=== PATIENT | female | born 1980 | race African-American/Black ===

== ENCOUNTER 2017-06-21 19:01 | Inpatient (IN) ==
[2017-06-21 19:42] LABS: BASO% 0.9 % (0.0-0.8); EOS# 0.15 X1000 (0.0-0.7); EOS% 3.2 % (0.0-10.0); HEMATOCRIT 20.8 % (37.0-47.0); HEMOGLOBIN 6.2 g/dL (12.0-16.0); LYMPH# 1.59 X1000 (1.2-3.4); LYMPH% 34.4 % (20.5-51.1); MANUAL DIFF NEEDED? YES; MCH 20.5 PG (27-31); MCHC 29.8 g/dL (33-37); MCV 68.9 FL (81-99); MONO# 0.39 X1000 (0.11-0.59); MONO% 8.4 % (1.7-9.3); MPV 9.9 FL (7.4-10.4); NEUT% 53.1 % (42.2-75.2); PLT 355 X1000 (130-400); RBC 3.02 XMIL (4.2-5.4)
--- NOTE | 2017-06-21 19:53 | PROVIDER DOCUMENTATION ---
HPI-Female /OB/Breast - General Chief Complaint: Female Stated Complaint: FEMALE Time Seen by Provider: 06/21/17 19:25 Source: reports: patient, family Allergies/Adverse Reactions: Patient Allergies Allergy/AdvReac Type Severity Reaction Status Date / Time Penicillins Allergy Unknown Verified 06/21/17 19:10 Home Medications: Home Medication List Medication Instructions Recorded Confirmed Last Taken Type NK [No Home Medications] 06/21/17 06/21/17 Unknown History - History of Present Illness-Female /OB Nature of Presenting Problem: 37 year old AAF presents with c/o heavy vaginal bleeding for 5 days. pt report she went through an entire box of tampons and large overnight pads yesterday alone. pt reports tonight she was at work and became dizzy, lightheaded, weak. pt reports her menstrual cycles usually have a 7-10 day duration with moderate to heavy flow. pt denies pain, reports she just feel weak. Does patient report she is ?: No Location of complaint: reports: vaginal Quality of Pain: reports: none Vaginal Symptoms: reports: abnormal bleeding Vaginal Bleeding Amount: Copious/Excessive Review of Systems - Adult - REVIEW OF SYSTEMS - ADULT Constitutional: reports: no symptoms reported. denies: chills, fever, fatique Eyes: reports: no symptoms reported. denies: discharge, blurred vision, double vision Ears, Nose, Mouth & Throat: reports: no symptoms reported. denies: ear discharge, ear pain, nose pain, loose teeth, throat pain, throat swelling Cardiovascular: reports: no symptoms reported. denies: chest pain, palpitations , syncope Respiratory: reports: no symptoms reported. denies: chronic cough, cough, shortness of breath, wheezing Gastrointestinal: reports: no symptoms reported. denies: abdominal pain, diarrhea, nausea, vomiting Genitourinary: reports: see HPI, discharge. denies: dysuria, hematuria, urgency Musculoskeletal: reports: no symptoms reported. denies: bone pain, joint pain, joint swelling, neck pain Integumentary: reports: no symptoms reported. denies: hives, skin sores/ulcer Neurological: reports: see HPI, dizziness/vertigo Psychiatric: reports: no symptoms reported Endocrine: reports: no symptoms reported Hematologic/Lymphatic: reports: see HPI, low blood count, prolonged bleeding, transfusions Allergic/Immunologic: reports: no symptoms reported All Other Systems: Reviewed and Negative Past History - Adult - PAST MEDICAL HISTORY-ADULT Review of Records: reports: Old Records Reviewed, Nursing Assessment Review, Medications Reviewed, Social history reviewed & non-contributory. Major Childhood Illnesses: reports: denies history Cardiovascular: reports: denies history Respiratory: reports: denies history Gastrointestinal: reports: denies history Obstetrical/Gynecological: reports: denies history Genitourinary: reports: denies history Musculoskeletal: reports: other (knee pain) Neurological: reports: denies history, degenerative disease Endocrine/Immune: reports: denies history Other Conditions: reports: denies history - PRIOR SURGERIES/PROCEDURES Surgical/Procedure History: reports: none - IMMUNIZATION STATUS Childhood Immunizations: See Nurse Assessment Flu Vaccine: See Nurse Assessment - FAMILY HISTORY Family History: reviewed, not pertinent - SOCIAL HISTORY Smoking: cigarettes Provider spent 3-5 mins advising pt. on dangers of tobacco.: Discussed manners to quit use, and f/u contacts for add'l counseling. Substance Use: none/never Alcohol Use Frequency: never Physical Exam-General - PHYSICAL EXAM-ADULT Initial Vital Signs Reviewed: Yes - CONSTITUTIONAL General Appearance: appears well, alert, no apparent distress. negative: mild distress, moderate distress, severe distress - EYES Eyes: pale conjunctivae. negative: sclera injected, scleral icterus, subconjunctival hemorrhage - HEAD, EARS, NOSE, MOUTH & THROAT HENMT: normocephalic/atraumatic, moist mucous membranes, normal ENT inspection - NECK Neck: non-tender, full range of motion, supple, normal inspection. negative: C- spine tenderness, limited range of motion, tender lateral, tender midline - RESPIRATORY Respiratory: chest non-tender, lungs clear, normal breath sounds, no pleuratic chest pain, no respiratory distress, no accessory muscle use. negative: respiratory distress, decreased breath sounds, accessory muscle use, crackles, rales, rhonchi, stridor, wheezing - CARDIOVASCULAR Cardiovascular: normal peripheral pulses, regular rate, rhythm - GASTROINTESTINAL (ABDOMEN) Abdominal Exam: normal bowel sounds, non tender, soft. negative: distended, guarding, rigid, tenderness - GENITOURINARY Female Genitalia/Pelvic Exam: external exam normal, active bleeding (mild to moderate bleeding noted from cervix with gold ball sized clots in the vaginal vault.), blood. negative: speculum exam normal - MUSCULOSKELETAL Back Exam: normal inspection, no CVA tenderness, no vertebral tenderness. negative: CVA tenderness, decreased range of motion, swelling, vertebral tenderness Extremity: normal range of motion, non-tender, normal gait, normal inspection, no pedal edema, no calf tenderness, normal capillary refill. negative: deformity, erythema, swelling, tenderness Peripheral Pulses: radial (R): 3+, radial (L): 3+ - SKIN Integumentary: normal turgor, warm/dry, pallor - NEUROLOGIC Neurologic: grossly normal, no motor/sensory deficits - PSYCHIATRIC Psych/Mental Status: normal mood/affect, normal thought content, normal thought process, oriented x 3 Progress - PLAN OF CARE/RESULTS Progress/Plan/Lab Results: Vital Signs - 8 hr 06/21/17 19:06 06/21/17 20:19 06/21/17 20:41 Temperature 98.5 F Pulse Rate 93 H 95 H Pulse Rate [Sitting] 90 Pulse Rate [Standing] 90 Pulse Rate [Supine] 90 Respiratory Rate 16 16 Blood Pressure 112/38 132/89 Blood Pressure [Sitting] 120/59 Blood Pressure [Standing] 129/75 Blood Pressure [Supine] 119/52 O2 Sat by Pulse Oximetry 100 100 06/21/17 21:05 06/21/17 21:20 06/21/17 21:53 Temperature 97.7 F 98.4 F Pulse Rate 90 92 H 89 Pulse Rate [Sitting] Pulse Rate [Standing] Pulse Rate [Supine] Respiratory Rate 14 14 20 Blood Pressure 124/60 120/62 120/62 Blood Pressure [Sitting] Blood Pressure [Standing] Blood Pressure [Supine] O2 Sat by Pulse Oximetry 100 100 100 Laboratory Results - last 24 hr 06/21/17 06/21/17 06/21/17 19:15 19:15 19:15 WBC 4.62 L RBC 3.02 L Hgb 6.2 L Hct 20.8 L MCV 68.9 L MCH 20.5 L MCHC 29.8 L RDW Std Deviation 18.5 H Plt Count 355 MPV 9.9 Immature Gran % (Auto) 0.0 Neut % (Auto) 53.1 Lymph % (Auto) 34.4 [place] % (Auto) 8.4 Eos % (Auto) 3.2 Baso % (Auto) 0.9 H Immature Gran # (Auto) 0.00 Neut # (Auto) 2.45 Lymph # (Auto) 1.59 [place] # (Auto) 0.39 Eos # (Auto) 0.15 Baso # (Auto) 0.04 Segmented Neutrophils 63 Lymphocytes 29 Monocytes 5 Eosinophils 3 Microcytosis 3+ PT 11.0 INR 1.04 PTT (Actin FS) 23.8 Sodium 138 Potassium 3.7 Chloride 103 Carbon Dioxide 24 L Anion Gap 11 BUN 12 Creatinine 0.7 Estimated GFR/1.73 m2 > 60 BUN/Creatinine Ratio 17 Glucose 86 Calculated Osmolality 275 Calcium 8.7 L Iron TIBC % Saturation Unsat Iron Binding Total Bilirubin 0.22 AST 17 ALT 12 Alkaline Phosphatase 95 Total Protein 7.2 Albumin 4.1 Globulin 3.1 Albumin/Globulin Ratio 1.3 Serum , Qual Blood Type Antibody Screen Crossmatch 06/21/17 06/21/17 06/21/17 19:15 19:15 19:15 WBC RBC Hgb Hct MCV MCH MCHC RDW Std Deviation Plt Count MPV Immature Gran % (Auto) Neut % (Auto) Lymph % (Auto) [place] % (Auto) Eos % (Auto) Baso % (Auto) Immature Gran # (Auto) Neut # (Auto) Lymph # (Auto) [place] # (Auto) Eos # (Auto) Baso # (Auto) Segmented Neutrophils Lymphocytes Monocytes Eosinophils Microcytosis PT INR PTT (Actin FS) Sodium Potassium Chloride Carbon Dioxide Anion Gap BUN Creatinine Estimated GFR/1.73 m2 BUN/Creatinine Ratio Glucose Calculated Osmolality Calcium Iron 11 L TIBC 371 % Saturation 3 Unsat Iron Binding 360 H Total Bilirubin AST ALT Alkaline Phosphatase Total Protein Albumin Globulin Albumin/Globulin Ratio Serum , Qual NEGATIVE Blood Type B POSITIVE Antibody Screen NEGATIVE Crossmatch See Detail Orders Category Date Time Status Orthostatic Vital Signs NOW Care 06/21/17 19:50 Active Saline Loc DIRECTED Care 06/21/17 19:50 Active Transfuse .Give-Transfuse Care 06/21/17 19:51 Active CHEST-2 VIEWS [RAD] Stat Exams 06/21/17 19:52 Completed CBC WITH DIFF [HEME] Stat Lab 06/21/17 19:15 Completed COMPREHENSIVE METABOLIC PANEL [CHEM] Stat Lab 06/21/17 19:15 Completed FERRITIN Stat Lab 06/21/17 19:15 Received FOLATE Stat Lab 06/21/17 19:15 Received OCCULT BLOOD SCREENING [STOOL] Stat Lab 06/21/17 19:50 Uncollected PRBC [LRPC (RED CELLS)] [BBK] Stat Lab 06/21/17 19:15 Results TEST-SERUM [PREG] Stat Lab 06/21/17 19:15 Completed PROTIME WITH INR [COAG] Stat Lab 06/21/17 19:15 Completed PTT [COAG] Stat Lab 06/21/17 19:15 Completed RETIC COUNT [HEME] Stat Lab 06/21/17 19:15 Ordered TYPE & SCREEN [BBK] Stat Lab 06/21/17 19:15 Results UA NIMS W/REFLEX CULT [URINALYSIS] Stat Lab 06/21/17 19:52 Uncollected UIBC W TOTAL IRON [CHEM] Stat Lab 06/21/17 19:15 Completed VITAMIN B12 Stat Lab 06/21/17 19:15 Received 0.9% Sodium Chloride Inj [Ns] 1,000 ml Med 06/21/17 20:58 Discontinued .ROUTE As Directed 0.9% Sodium Chloride Inj [Ns] 1,000 ml Med 06/21/17 20:57 Active IV 50 mls/hr EKG [EKG] Stat Ther 06/21/17 19:51 Ordered Transfer/Admit Order [TRANSFER] Routine Transfer 06/21/17 21:30 Ordered Laboratory Tests 06/21/17 06/21/17 06/21/17 19:15 19:15 19:15 WBC 4.62 L RBC 3.02 L Hgb 6.2 L Hct 20.8 L MCV 68.9 L MCH 20.5 L MCHC 29.8 L RDW Std Deviation 18.5 H Plt Count 355 MPV 9.9 Immature Gran % (Auto) 0.0 Neut % (Auto) 53.1 Lymph % (Auto) 34.4 [place] % (Auto) 8.4 Eos % (Auto) 3.2 Baso % (Auto) 0.9 H Immature Gran # (Auto) 0.00 Neut # (Auto) 2.45 Lymph # (Auto) 1.59 [place] # (Auto) 0.39 Eos # (Auto) 0.15 Baso # (Auto) 0.04 Segmented Neutrophils 63 Lymphocytes 29 Monocytes 5 Eosinophils 3 Microcytosis 3+ PT 11.0 INR 1.04 PTT (Actin FS) 23.8 Sodium 138 Potassium 3.7 Chloride 103 Carbon Dioxide 24 L Anion Gap 11 BUN 12 Creatinine 0.7 Estimated GFR/1.73 m2 > 60 BUN/Creatinine Ratio 17 Glucose 86 Calculated Osmolality 275 Calcium 8.7 L Total Bilirubin 0.22 AST 17 ALT 12 Alkaline Phosphatase 95 Total Protein 7.2 Albumin 4.1 Globulin 3.1 Albumin/Globulin Ratio 1.3 Serum , Qual Blood Type Antibody Screen Crossmatch 06/21/17 06/21/17 19:15 19:15 WBC RBC Hgb Hct MCV MCH MCHC RDW Std Deviation Plt Count MPV Immature Gran % (Auto) Neut % (Auto) Lymph % (Auto) [place] % (Auto) Eos % (Auto) Baso % (Auto) Immature Gran # (Auto) Neut # (Auto) Lymph # (Auto) [place] # (Auto) Eos # (Auto) Baso # (Auto) Segmented Neutrophils Lymphocytes Monocytes Eosinophils Microcytosis PT INR PTT (Actin FS) Sodium Potassium Chloride Carbon Dioxide Anion Gap BUN Creatinine Estimated GFR/1.73 m2 BUN/Creatinine Ratio Glucose Calculated Osmolality Calcium Total Bilirubin AST ALT Alkaline Phosphatase Total Protein Albumin Globulin Albumin/Globulin Ratio Serum , Qual NEGATIVE Blood Type B POSITIVE Antibody Screen NEGATIVE Crossmatch See Detail Orders Category Date Time Status Orthostatic Vital Signs NOW Care 06/21/17 19:50 Active Saline Loc DIRECTED Care 06/21/17 19:50 Active Transfuse .Give-Transfuse Care 06/21/17 19:51 Active CHEST-2 VIEWS [RAD] Stat Exams 06/21/17 19:52 Taken CBC WITH DIFF [HEME] Stat Lab 06/21/17 19:15 Completed COMPREHENSIVE METABOLIC PANEL [CHEM] Stat Lab 06/21/17 19:15 Completed OCCULT BLOOD SCREENING [STOOL] Stat Lab 06/21/17 19:50 Uncollected PRBC [LRPC (RED CELLS)] [BBK] Stat Lab 06/21/17 19:15 Results TEST-SERUM [PREG] Stat Lab 06/21/17 19:15 Completed PROTIME WITH INR [COAG] Stat Lab 06/21/17 19:15 Completed PTT [COAG] Stat Lab 06/21/17 19:15 Completed TYPE & SCREEN [BBK] Stat Lab 06/21/17 19:15 Results UA NIMS W/REFLEX CULT [URINALYSIS] Stat Lab 06/21/17 19:52 Uncollected 0.9% Sodium Chloride Inj [Ns] 1,000 ml Med 06/21/17 20:58 Discontinued .ROUTE As Directed 0.9% Sodium Chloride Inj [Ns] 1,000 ml Med 06/21/17 20:57 Active IV 50 mls/hr EKG [EKG] Stat Ther 06/21/17 19:51 Ordered Vital Signs - 24 hr 06/21/17 19:06 06/21/17 20:19 06/21/17 20:41 Temperature 98.5 F Pulse Rate 93 H 95 H Pulse Rate [Sitting] 90 Pulse Rate [Standing] 90 Pulse Rate [Supine] 90 Respiratory Rate 16 16 Blood Pressure 112/38 132/89 Blood Pressure [Sitting] 120/59 Blood Pressure [Standing] 129/75 Blood Pressure [Supine] 119/52 O2 Sat by Pulse Oximetry 100 100 06/21/17 21:05 06/21/17 21:20 Temperature 97.7 F 98.4 F Pulse Rate 90 92 H Pulse Rate [Sitting] Pulse Rate [Standing] Pulse Rate [Supine] Respiratory Rate 14 14 Blood Pressure 124/60 120/62 Blood Pressure [Sitting] Blood Pressure [Standing] Blood Pressure [Supine] O2 Sat by Pulse Oximetry 100 100 Reviewed labs, H&P with Dr. Sin, agrees with admission, transfusion. Result Diagrams: 06/21/17 19:15 06/21/17 19:15 - REASSESSMENT Reassessment #1 Time Reassessed: 21:35 Status: other (pt notified of admission, agrees, verbalizes understanding and agrees to transfer [place] for specialist consult.) - CONSULTS/PCP/HOSPITALIST Notification #1 *Consult/PCP/Hospitalist*: Dr. Alamo Time Discussed: 21:26 Consult Disposition: Will see in ED, Admit, other (transfer to [place] for gynecology consult.) #2 Consult: Dr. Webster Time Discussed: 21:52 Consult Disposition: other (transfer to [place] and he will evaluate there.) #3 Consult: Dr. Alamo Time Discussed: 21:55 Consult Disposition: other (notified of exam with active bleeding and consult with Dr. Webster.) Departure - Departure Date of Disposition Decision: 06/21/17 Time of Disposition Decision: 21:21 DIAGNOSIS: Vaginal bleeding Anemia Qualifiers: Anemia type: unspecified type Qualified Code(s): D64.9 - Anemia, unspecified Disposition: ADMITTED INPATIENT 09 Certified Medical Emergency: Emergent Condition: Stable - Critical Care Note This patient required my direct & personal management of CC.: No Attestation - Physician/ JEROME Attestation Patient care was provided by Advanced Practice Provider:: Yes Advanced Practice Provider:: Manuela Glover Advanced Practice Provider documentation review:: The Mid-level provider documentation, treatment plan and medical decision making was reviewed by the physician who agrees with all treatment and medical decision making by the MLP.
[2017-06-21 19:54] LABS: EOS 3 % (1-10); LYMPHS 29 % (21-51); MONO 5 % (1-9)
[2017-06-21 20:10] LABS: INR 1.04; PTT 23.8 Seconds (22.0-36.0)
[2017-06-21 20:15] LABS: AGAP 11; ALBUMIN 4.1 g/dL (3.5-5.0); ALKALINE PHOSPHATASE 95 U/L (32-104); BUN 12 mg/dL (8-22); CALCIUM 8.7 mg/dL (8.8-10.2); CHLORIDE 103 mmol/L (98-107); COSMO 275; GOT 17 U/L (10-30); GPT 12 U/L (10-36); POTASSIUM 3.7 mmol/L (3.5-5.1); SODIUM 138 mmol/L (136-145); TCO2 24 mmol/L (25-35); TOTAL BILIRUBIN 0.22 mg/dL (0.20-1.00); TOTAL PROTEIN 7.2 g/dL (6.3-8.3)
[2017-06-21] MEDS ORDERED: NS 1,000 ML IV ONE (20:57)
[2017-06-21] MEDS ORDERED: NS 1,000 ML ONE (20:58)
--- NOTE | 2017-06-21 22:11 | Diag Imaging Result Doc PS360 ---
CHEST-2 VIEWS - 06/21/2017 INDICATION: admission TECHNIQUE: COMPARISON: 01/20/2017 FINDINGS: The lungs are normally expanded and clear. Heart size and mediastinal contours are normal. No pneumothorax or pleural effusion. IMPRESSION: Negative exam. Electronically signed by Jesús Koch 06/21/2017 10:09 PM
[2017-06-21 22:14] LABS: IRON SATURATION 3 %; TIBC 371 ug/dL; TOTAL IRON 11 ug/dL (49-151); UNBOUND IRON 360 ug/dL (112-346)
[2017-06-21 22:30] LABS: FERRITIN 2 ng/mL (13-150)
[2017-06-21 22:32] LABS: RETIC% 2.33 % (0.8-2.1); RETIC-HE 18.7 PG (28.2-36.6)
--- NOTE | 2017-06-21 22:49 | ED EKG INTERP ---
This chart was entered by Erick Madrid Scribe, acting as scribe for Checo Sin MD. EKG Interpretation - EKG Time of EKG reading by physician:: 20:09 EKG Read and Signed by:: Checo Sin EKG Interpretation (*Must complete 3 of following elements*): Normal Rate: 102 Rhythm: Sinus tachycardia This chart was documented by the indicated scribe, (Erick Madrid Scribe) and accurately reflects the services I performed and decisions made by me, Checo La MD, as attested by the provider's signature.
--- NOTE | 2017-06-21 23:30 | HISTORY AND PHYSICAL ---
PRIMARY CARE PROVIDER: LEILA Myers CHIEF COMPLAINT: Heavy vaginal bleeding. HISTORY OF PRESENT ILLNESS: A 36-year-old female with a past medical history of heavy menstrual bleeding and cramping comes to the emergency room after 5 days of bleeding. She became dizzy at work. She reportedly went through an entire box of super-absorbent plus tampons and a large overnight pad yesterday. She has had 7-10 days of bleeding. She also stated that her last menstrual period was 2 weeks prior to this. She has felt weak and fatigued with dizziness and lightheadedness. She denies any chest pain, shortness of breath. Laboratory data was obtained as well as a pelvic exam performed in the emergency room. Her hemoglobin and hematocrit was 6.2 and 20.8. On pelvic exam, the ER provider noted at least 2 golf ball sized clots as well as mild to moderate bleeding in the cervix. INTERACTIVE DEVELOPER psychological operations officer at [facility] has agreed to consult the patient and she will be sent to [facility] for further evaluation and treatment. PAST MEDICAL HISTORY: Heavy menstrual bleeding. PREVIOUS SURGICAL HISTORY: 1. C-sections x2. 2. Bilateral tubal ligation. FAMILY HISTORY: Mother had a CABG x2, the 1st in her 40's. SOCIAL HISTORY: Smokes half a pack of cigarettes a day. Denies alcohol or illicit drug use or abuse. with 3 kids at home. Works at [employer]. ALLERGIES: Penicillin causing an unknown reaction from childhood. HOME MEDICATIONS: NSAIDs and Tylenol related to pain occasionally. Otherwise, no home medications. REVIEW OF SYSTEMS: Fourteen point review of systems conducted with the patient. Pertinent positives listed above in the HPI. All other systems reviewed and found to be negative. PHYSICAL EXAMINATION: VITAL SIGNS: Temperature 98.4 degrees, pulse 92, respirations 14, blood pressure 120/62, oxygen saturation 100% on room air. Orthostatic vital signs were done and patient was not orthostatic. GENERAL: Pleasant, 37-year-old female, answers all questions appropriately lying on the ER stretcher in no acute distress. HEENT: Head is atraumatic, normocephalic. Pupils equal, round, reactive to light. Extraocular eye movement intact. Sclerae is anicteric. Conjunctivae is pale. Oral mucosa is moist. NECK: Supple. No JVD. No thyromegaly. Trachea is midline. No cervical lymphadenopathy. CARDIAC: S1-S2 appreciated. No murmurs, gallops, rubs. Regular rhythm. LUNGS: Clear to auscultation bilaterally. No rhonchi, wheezes or rales. Symmetrical rise and fall with respirations. ABDOMEN: Soft, nondistended, nontender. Bowel sounds present in all 4 quadrants. Normoactive. No pulsatile mass. No organomegaly. EXTREMITIES: No clubbing, cyanosis, or edema. 2+ pedal pulses. GENITOURINARY: Mild bleeding noted on pad. No bladder distention. ER provider has already provided pelvic examination. Otherwise, deferred. NEUROLOGICAL: Alert and oriented x3. Cranial nerves 2-12 grossly intact. SKIN: Warm, dry, intact. No acute lesions or rash. LABORATORY DATA: WBC 4.62, hemoglobin 6.2, hematocrit 20.8, platelet count 355,000. Coagulase within normal limits. Sodium 138, potassium 3.7, chloride 103, carbon dioxide 24, BUN 12, creatinine 0.7, glucose 86. Serum test was negative. ASSESSMENT AND PLAN: 1. Menorrhagia. pastor INTERACTIVE DEVELOPER at [facility] has been consulted/ she will receive 2 units of packed red blood cells. Transvaginal ultrasound in a.m. 2. Anemia secondary to #1. I will transfuse 2 units packed red blood cells and recheck laboratory data. Anemia panel has been ordered. 3. Tobacco use. Smoking cessation has been gone over with the patient. She understands the perils of smoking and has agreed to try to quit. Further recommendations per patient clinical course. Dictated by LEILA Krishnan for Alejandro Alamo MD cc: LEILA Krishnan MD John L. Stafford, MD Natalie McCay
[2017-06-22] MEDS ORDERED: TYLENOL PO PRN (00:27)
[2017-06-22] MEDS ORDERED: ZOFRAN IV PRN (00:27)
[2017-06-22] MEDS ORDERED: DEMEROL IV PRN (01:50)
[2017-06-22] MEDS ORDERED: PREMARIN IV PRN (01:50)
[2017-06-22] MEDS ORDERED: PHENERGAN IV PRN (01:50)
[2017-06-22] MEDS ORDERED: SODIUM CHLORIDE 0.9% INJ PRN (01:50)
--- NOTE | 2017-06-22 05:29 | EKG Report ---
Test Performed on : 06/21/2017 8:09:46 PM Test Reason : admission Blood Pressure : / mmHG Vent. Rate : 102 BPM Atrial Rate : 102 BPM P-R Int : 136 ms QRS Dur : 062 ms QT Int : 340 ms P-R-T Axes : 058 086 065 degrees QTc Int : 443 ms Sinus tachycardia. Otherwise normal ECG No previous ECGs available Unconfirmed Result
[2017-06-22] MEDS: LR 1,000 ML IV SCH ×2 (05:37→17:47)
[2017-06-22 06:42] LABS: MANUAL DIFF NEEDED? NO
[2017-06-22 06:48] LABS: BASO% 0.5 % (0.0-0.8); EOS# 0.16 X1000 (0.0-0.7); EOS% 2.6 % (0.0-10.0); HEMATOCRIT 24.2 % (37.0-47.0); HEMOGLOBIN 7.6 g/dL (12.0-16.0); IMM GRAN# 0.01 X1000 (0.0-0.04); IMM GRAN% 0.2 % (0.0-0.5); LYMPH% 25.5 % (20.5-51.1); MCH 22.7 PG (27-31); MCHC 31.4 g/dL (33-37); MCV 72.2 FL (81-99); MONO# 0.42 X1000 (0.11-0.59); MONO% 6.7 % (1.7-9.3); NEUT% 64.5 % (42.2-75.2); PLT 278 X1000 (130-400); RBC 3.35 XMIL (4.2-5.4)
[2017-06-22 06:56] LABS: AGAP 7; BUN 8 mg/dL (8-22); CALCIUM 8.2 mg/dL (8.8-10.2); CHLORIDE 108 mmol/L (98-107); COSMO 273; POTASSIUM 3.3 mmol/L (3.5-5.1); SODIUM 137 mmol/L (136-145); TCO2 22 mmol/L (25-35)
--- NOTE | 2017-06-22 08:49 | PROGRESS NOTE ---
DATE: 06/22/2017 SUBJECTIVE: Patient without any new complaints. Tolerated the blood transfusion without any problems. PHYSICAL EXAMINATION: Vital Signs: Temperature 97, pulse 61, respiratory rate 20, BP 102/36, saturating 100% on room air. General: Patient is awake, alert. She is in no respiratory distress. Neck: Supple. CV: Regular rate. Chest: Clear. Abdomen: Soft. Extremities: Moves all extremities. Neurological: No changes. LABORATORY DATA: Hemoglobin and hematocrit have improved, were 6 and 20, currently 7.6 and 24. Potassium 3.3. ASSESSMENT: 1. Menorrhagia. Patient has currently received 2 units of packed red cells. She is undergoing a transvaginal ultrasound this morning. 2. Anemia secondary to menorrhagia. Certainly, we will consider transfusing 1 more unit as her hemoglobin and hematocrit are only 7 and we certainly have not gotten to the bottom of the cause of her bleeding. 3. Hypokalemia. We will replace and continue to follow. PLAN: As noted, we will type, cross, and transfuse 1 more unit in transfusion. We will recheck her hemoglobin and hematocrit. We will discuss with BUDGET MANAGER further options. cc: Dave Jones MD
--- NOTE | 2017-06-22 08:52 | Diag Imaging Result Doc PS360 ---
EXAM: US PELVIC NON-SEAT SCOOPER MACHINE COMPLETE - 06/22/2017 HISTORY: menorrhagia TECHNIQUE: Exam performed using transvaginal probe COMPARISON: None. FINDINGS: The uterus measures 11.6 cm in length by 6.9 x 6.2 cm in diameter. The uterus appears nongravid. The endometrial echo is indistinct which apparently relates to some artifacts. The endometrial thickness questionably measures 2.9 cm. There are small cervical cysts measuring up to 0.9 cm. There is no other discrete uterine lesion identified. The bilateral ovaries are visualized and demonstrate blood flow signal Doppler images. The right ovary is unremarkable. There is a 3.1 x 2.8 x 1.8 cm left ovarian cyst. There are some low level internal echoes in the cyst which could be artifactual or could relate to the cyst being mildly complicated. There is no other adnexal mass identified. There is no free fluid seen. IMPRESSION: Questionably thickened endometrial echo at 2.9 cm. However, the endometrial echo is somewhat indistinct, apparently due to artifacts, which may limit the accuracy of the thickness measurement. 3.1 x 2.8 x 1.8 cm left ovarian cyst, which may be mildly complicated. Unremarkable right ovary. No free fluid. Electronically signed by Piotr Ascencio 06/22/2017 8:50 AM
[2017-06-22] MEDS ORDERED: NS 500 ML ONE (09:25)
--- NOTE | 2017-06-22 10:19 | CONSULTATION ---
DATE OF CONSULTATION: 06/22/2017 Hospital day 1. REASON FOR CONSULT: Vaginal bleeding with anemia. HISTORY OF PRESENT ILLNESS: Ms. Jackson is a 37-year-old, 3, para 3 who came in through the ER last night and was admitted by the hospitalist with severe anemia with a hemoglobin of 6.2. She states that she has been having vaginal bleeding for the past 5 days that she described as extremely heavy, going through multiple tampons and wearing heavy pads. She became weak and dizzy, and presented to the emergency room. She states that she has heavy periods on occasions but occasionally, she has a normal period. She has also had some intermenstrual bleeding but she has never been worked up before. She states she has just gotten a family doctor and made an appointment to discuss the issue with him. PAST MEDICAL HISTORY: Negative for hypertension and diabetes. PAST SURGICAL HISTORY: Significant for delivery x2. The last delivery, she had a tubal ligation. ISSUES: She was 3 times. Had 1 vaginal delivery and then 2 deliveries. ALLERGIES: She is allergic to penicillin. She states that she has a rash. MEDICATIONS: She is on no medications at this point. SOCIAL HISTORY: She states that she smokes a half a pack of cigarettes per day. Does not drink or do any drugs. She works at [employer]. She lives with her and her children. FAMILY HISTORY: Significant for her mother having myocardial infarction in her 40s which resulted in open heart surgery. PHYSICAL EXAMINATION: Vital Signs: Temperature 98.3 degrees, pulse 65, respirations 18, blood pressure 100/53. General: She is alert and cooperative. She does not appear to be in any distress. Neck: Supple. Lungs: Clear. Heart: Regular sinus rhythm. Abdomen: Soft. Pelvic: Deferred. Extremities: No cyanosis, clubbing, or edema in her extremities. Height and Weight: She is 5 feet 7 inches, and weighs about 170 pounds. LABORATORY VALUES: She is status post 2 units of packed red blood cells. Hemoglobin 7.6, hematocrit 24, platelets are normal. Coagulation profile: PT 11, PTT 23.8. Chemistries: This morning, she is slightly dehydrated. Potassium slightly low at 3.3, glucose 106, otherwise normal. Her liver functions from last night did not reveal elevated liver enzymes. Her total iron was low at 11 and saturation iron binding was 360 which was high, and ferritin was low at 2 with the normal being 13 to 150. ASSESSMENT: Menometrorrhagia with resultant severe anemia. PLAN: We will obtain a pelvic ultrasound this morning. Suspect since her pulse rate is normal that this is a chronic issue. We will not plan on doing surgery until she builds up her hemoglobin and hematocrit, provided the pelvic ultrasound does not force us into that. We will continue to monitor the patient's bleeding. As of now, she has not required any hormonal therapy. Would like to avoid hormonal therapy if possible because of the unknown nature of her bleeding. We will continue to follow with hospitalist with anticipated discharge and followup in the office with a plan for her problems. cc: Logan Schmitz MD
[2017-06-22 18:35] LABS: BASO% 0.4 % (0.0-0.8); EOS% 2.7 % (0.0-10.0); HEMOGLOBIN 8.5 g/dL (12.0-16.0); IMM GRAN# 0.01 X1000 (0.0-0.04); IMM GRAN% 0.1 % (0.0-0.5); LYMPH# 1.59 X1000 (1.2-3.4); LYMPH% 21.6 % (20.5-51.1); MANUAL DIFF NEEDED? YES; MCH 23.2 PG (27-31); MCHC 31.5 g/dL (33-37); MCV 73.6 FL (81-99); MONO# 0.64 X1000 (0.11-0.59); MONO% 8.7 % (1.7-9.3); MPV 9.8 FL (7.4-10.4); NEUT% 66.5 % (42.2-75.2); PLT 278 X1000 (130-400); RBC 3.67 XMIL (4.2-5.4)
[2017-06-22 20:10] LABS: BASO 1 % (0-1); LYMPHS 21 % (21-51); MONO 7 % (1-9)
[2017-06-23] MEDS: LR 1,000 ML IV SCH ×2 (00:16→06:31)
[2017-06-23 07:10] LABS: HEMATOCRIT 23.6 % (37.0-47.0); HEMOGLOBIN 7.4 g/dL (12.0-16.0); MCH 23.3 PG (27-31); MCHC 31.4 g/dL (33-37); MCV 74.4 FL (81-99); MPV 10.5 FL (7.4-10.4); RBC 3.17 XMIL (4.2-5.4)
[2017-06-23 07:14] LABS: AGAP 8; ALBUMIN 3.2 g/dL (3.5-5.0); ALKALINE PHOSPHATASE 91 U/L (32-104); BUN 9 mg/dL (8-22); CALCIUM 8.6 mg/dL (8.8-10.2); CHLORIDE 107 mmol/L (98-107); COSMO 270; GOT 14 U/L (10-30); GPT 9 U/L (10-36); POTASSIUM 3.8 mmol/L (3.5-5.1); SODIUM 136 mmol/L (136-145); TCO2 21 mmol/L (25-35); TOTAL PROTEIN 5.9 g/dL (6.3-8.3)
[2017-06-23] MEDS ORDERED: DIPRIVAN 1% ONE (09:02)
[2017-06-23] MEDS ORDERED: FENTANYL ONE (09:03)
[2017-06-23] MEDS ORDERED: QUELICIN (DOSE) ONE (09:03)
[2017-06-23] MEDS ORDERED: XYLOCAINE-MPF 2% ONE (09:05)
[2017-06-23] MEDS ORDERED: DECADRON ONE (09:14)
[2017-06-23] MEDS ORDERED: ZOFRAN ONE (09:14)
[2017-06-23] MEDS ORDERED: PEPCID IV ONE (09:30)
[2017-06-23] MEDS ORDERED: CYTOTEC ONE (10:18)
[2017-06-23] MEDS ORDERED: VENTOLIN HFA ONE (10:32)
--- NOTE | 2017-06-23 11:36 | PROGRESS NOTE ---
DATE: 06/23/2017 SUBJECTIVE: The patient is without any new complaints. States that she does feel tired and fatigued. Did not sleep well last night. Complains of some muscle aches. Otherwise, no other complaints. PHYSICAL EXAMINATION: Vital Signs: Temperature 98, pulse 87, respiratory rate 18, BP 123/44, saturation 100% on room air. General: Patient is awake, alert, lying in bed. She is in no respiratory distress. Pleasant to talk with. Neck: Supple. CV: Regular rate. Chest: Relatively clear. Abdomen: Soft and nondistended. LABS: Hemoglobin and hematocrit 7 and 23. CMP normal. ASSESSMENT: 1. Menorrhagia. 2. Anemia secondary to menorrhagia. 3. Chronic tobacco abuse. 4. Mild protein calorie malnutrition. PLAN: We will continue to follow MERCHANDISE WORKER's lead. The patient did have some bleeding overnight. Expect that she may have to have intervention at this point. cc: Dave Jones MD
[2017-06-23] MEDS: NORCO-5 PO PRN ×2 (12:55→16:02)
--- NOTE | 2017-06-23 13:21 | PROGRESS NOTE ---
DATE: 06/23/2017 She is hospital day 2, with severe anemia from vaginal bleeding. CONDITION: Is stable. Ms. Jackson states she is feeling weak this morning. No other change. She still has some bleeding but not as bad as yesterday. Vital signs: Temp 98.4 degrees, blood pressure 99/40, pulse 84. She appears weak but she is cooperative. Lungs: Clear. Heart: Regular sinus rhythm. Abdomen: Soft. Pelvic: Deferred. Ultrasound done yesterday revealed an enlarged uterus at 11 x 7 x 6. Very thick endometrial cavity 2.9 cm. The right ovary normal. Left ovary has a 3 x 3 cyst. So with thickened endometrium and severe anemia do feel it is best in a patient age 37 to get tissue diagnoses so we will go proceed with the D and C to control bleeding and also to get a diagnosis. Procedure has been discussed with patient and . A good understanding was obtained and she desires to proceed. cc: Logan Schmitz MD
[2017-06-23 15:18] VITALS: BP 126/48
--- NOTE | 2017-06-23 15:25 | OPERATIVE NOTE ---
PROCEDURE DATE: 06/23/2017 PREOPERATIVE DIAGNOSIS: 1. Menometrorrhagia. 2. Large uterus. 3. Severe anemia. POSTOPERATIVE: 1. Menometrorrhagia. 2. Large uterus. 3. Severe anemia. PROCEDURE: Dilatation and curettage. PHYSICIAN: Logan Schmitz MD ANESTHESIA: General endotracheal with Dr. Saunders. FINDINGS: Cervical os was open enough to admit a 12 suction curette. She had an enlarged uterus sounded to 13 cm. Got what appeared to be polyps from the endometrial scrapings. ESTIMATED BLOOD LOSS: 20 mL. MEDICATIONS: Cytotec 880 mg given rectally. DETAILS OF OPERATION: Please refer to Ms. Jackson's H P. She was brought down to the operating room, placed under general endotracheal anesthesia and prepped and draped in dorsal lithotomy position. The cervix was isolated, grasped with a single-tooth tenaculum. The uterus was sounded to 13 cm. Then it was determined that the cervix was dilated enough to admit a 12 suction catheter. So this was admitted and all quadrants were suctioned out. Some tissue was obtained and upon gross inspection, there appeared to be polyps. Once this was done, she had very little bleeding. The cervix was released from the tenaculum. 800 mg of Cytotec was given rectally. She was taken down from dorsal lithotomy, awakened, and taken to the recovery room in stable condition. cc: Logan Schmitz MD
--- NOTE | 2017-06-24 09:48 | DISCHARGE SUMMARY ---
ADMISSION DATE: 06/21/2017 DISCHARGE DATE: 06/23/2017 HISTORY AND HOSPITAL COURSE: The patient was admitted 06/[address] Jones. I was consulted. I did a consult on her and ordered a vaginal ultrasound which revealed a thickened endometrium. This was followed up today by Chioma Parham. Currently, she is stable, and bleeding is mild, so we will discharge to home with followup in approximately one week, and to take [id number] nonsteroidals for pain. cc: Logan Schmitz MD
== END 2017-06-23 18:20 | disposition home or self-care (01) ==
LOC: P.MEDSURG 19:01 → ED 19:01 → OBSVTOIN 21:59 → SUATTDRO 21:59 → P.WC 06-22 00:25
PROVIDERS: ATTEND Family Medicine

== ENCOUNTER 2017-08-07 07:58 | Inpatient (IN) ==
[2017-08-07 08:33] LABS: BASO% 0.3 % (0.0-0.8); EOS# 0.09 X1000 (0.0-0.7); EOS% 1.2 % (0.0-10.0); HEMATOCRIT 23.3 % (37.0-47.0); HEMOGLOBIN 6.6 g/dL (12.0-16.0); IMM GRAN# 0.02 X1000 (0.0-0.04); IMM GRAN% 0.3 % (0.0-0.5); LYMPH# 0.81 X1000 (1.2-3.4); LYMPH% 10.5 % (20.5-51.1); MANUAL DIFF NEEDED? NO; MCH 18.6 PG (27-31); MCHC 28.3 g/dL (33-37); MCV 65.6 FL (81-99); MONO# 0.53 X1000 (0.11-0.59); MONO% 6.9 % (1.7-9.3); NEUT% 80.8 % (42.2-75.2); PLT 379 X1000 (130-400); RBC 3.55 XMIL (4.2-5.4)
[2017-08-07 09:50] LABS: AGAP 12; ALBUMIN 4.4 g/dL (3.5-5.0); ALKALINE PHOSPHATASE 113 U/L (32-104); BUN 6 mg/dL (8-22); CALCIUM 8.8 mg/dL (8.8-10.2); CHLORIDE 104 mmol/L (98-107); COSMO 275; GOT 15 U/L (10-30); GPT 10 U/L (10-36); POTASSIUM 3.4 mmol/L (3.5-5.1); SODIUM 139 mmol/L (136-145); TCO2 23 mmol/L (25-35); TOTAL PROTEIN 8.2 g/dL (6.3-8.3)
[2017-08-07 10:29] LABS: BILIRUBIN URINE NEGATIVE (NEGATIVE); BLOOD URINE 4+ (NEGATIVE); CLARITY CLEAR (CLEAR); COLOR YELLOW; GLUCOSE URINE NEGATIVE (NEGATIVE); LEUKOCYTES URINE TRACE (NEGATIVE); NITRITE URINE POSITIVE (NEGATIVE); PH URINE 6.5; PROTEIN URINE TRACE mg/dL (NEGATIVE); SP GRAVITY URINE 1.015; UROBILINOGEN URINE NORMAL
[2017-08-07 10:30] LABS: URINE CULTURE PL NEEDED? YES; URINE EPITHELIAL CELLS >10 /HPF (<10); URINE SOURCE CLEAN CATCH; URINE WBC <10 /HPF (<10)
[2017-08-07] MEDS ORDERED: NS 1,000 ML IV ONE (10:31)
[2017-08-07] MEDS ORDERED: CLEOCIN PO ONE (10:33)
[2017-08-07] MEDS ORDERED: TYLENOL WITH CODEINE #3 PO ONE (10:33)
[2017-08-07] MEDS ORDERED: NS 1,000 ML IV SCH (12:49)
[2017-08-07] MEDS: CLEOCIN PO SCH ×2 (14:33→20:00)
[2017-08-07] MEDS: TYLENOL WITH CODEINE #3 PO PRN ×2 (16:19→22:07)
[2017-08-08] MEDS: CLEOCIN PO SCH ×3 (02:36→14:08)
[2017-08-08] MEDS: TYLENOL WITH CODEINE #3 PO PRN ×2 (03:28→10:01)
[2017-08-08 05:42] LABS: HEMOGLOBIN 7.8 g/dL (12.0-16.0); MCV 70.1 FL (81-99); MPV 9.4 FL (7.4-10.4); RBC 3.71 XMIL (4.2-5.4)
[2017-08-08 05:58] LABS: AGAP 7; BUN 9 mg/dL (8-22); CALCIUM 8.4 mg/dL (8.8-10.2); CHLORIDE 109 mmol/L (98-107); COSMO 280; POTASSIUM 3.6 mmol/L (3.5-5.1); SODIUM 141 mmol/L (136-145); TCO2 25 mmol/L (25-35)
[2017-08-08] MEDS ORDERED: PRILOSEC PO SCH (07:00)
[2017-08-08 11:49] VITALS: BP 114/58
== END 2017-08-08 14:55 | disposition home or self-care (01) ==
LOC: P.ED 07:58 → P.MEDSURG 11:53
PROVIDERS: ATTEND Family Medicine